=== PATIENT | male | born 1960 | race Hispanic/Latino ===

== ENCOUNTER 2025-10-20 17:06 | Emergency (ER) | payer MEDICARE ==
[~2025-10-20] VITALS: Ht 172.7 cm; Wt 98.9 kg
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
[2025-10-20 17:44] LABS: IMMATURE GRANULOCYTE ABSOLUTE 0.01 K/uL (0-1); NUCLEATED RED BLOOD CELLS 0.0 % (0.0-0.19); PLATELET COUNT (AUTO) 278 K/uL (130-400); RED BLOOD CELL COUNT(AUTO) 4.61 MIL/uL (4.50-6.20); RED CELL DISTRIBUTION WIDTH 12.8 % (11.0-15.5); WHITE BLOOD COUNT (AUTO) 7.4 K/uL (4.8-10.8)
[2025-10-20 17:54] LABS: CREATININE 1.6 mg/dL (0.5-1.3); GLOMERULAR FILTR. RATE CALC 47.0 mL/min (>90); GLUCOSE,RANDOM 131.0 mg/dL (70-105); SODIUM SERUM 141.0 mmol/L (136-145); UREA NITROGEN, BLOOD 18.0 mg/dL (7-18)
--- NOTE | 2025-10-20 19:23 | NUR ---
PT CARE ASSUMED AT THIS TIME
[2025-10-20 19:28] VITALS: BP 143/79; PULSE 89; RESP 17; TEMP 98.1; O2SAT 98
--- NOTE | 2025-10-20 19:41 | HMCIMG ---
EXAM: CR Cervical spine, 4 View. CLINICAL HISTORY: NUMBNESS TINGLIN TO HIS RIGHT ARM. NEURO INTACT COMPARISON: None provided. FINDINGS: Cervical spondylosis evident by anterior osteophytes and uncovertebral joint hypertrophy at multiple levels. There is multilevel degenerative disc disease, moderate to severe at C5-C7. There is minimal grade 1 anterolisthesis of C3 with respect to C4 and also of C4 with respect to C5. There is no displaced fracture appreciated. Prevertebral soft tissues are within normal limits. Lung apices are clear. IMPRESSION: 1. No acute fracture. 2. Multilevel cervical spondylosis with moderate to severe degenerative disc disease at C5-C7. /[place]
== END 2025-10-20 19:38 | disposition home or self-care (01) ==
LOC: EDH 17:06
DX: M47.812 Spondylosis without myelopathy or radiculopathy, cervical region (principal); R20.2 Paresthesia of skin; N18.30 Chronic kidney disease, stage 3 unspecified
CPT/HCPCS: 36415; 72040; 80048; 85025; 99284